=== PATIENT | female | born 1945 | race African-American/Black ===

== ENCOUNTER 2019-04-28 13:09 | Emergency (ER) | payer OTHER, MEDICARE ==
[2019-04-28 13:25] VITALS: BP 181/98; PULSE 66; TEMP 98.8; BMI 35.0
[2019-04-28] MEDS ORDERED: diazePAM 5 MG TABLET PO ONE (14:17)
[2019-04-28] MEDS ORDERED: diazePAM 5 MG TABLET ONE (14:20)
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
== END 2019-04-28 14:36 | disposition home or self-care (01) ==
LOC: JERFT 13:09
DX: M62.830 Muscle spasm of back (principal); I10 Essential (primary) hypertension
CPT/HCPCS: 99281-25